=== PATIENT | male | born 1965 | race Two or more races ===

== ENCOUNTER 2020-12-14 16:34 | Emergency (ER) | payer BC, OTHER ==
[~2020-12-14] VITALS: Ht 190.5 cm; Wt 90.7 kg
[2020-12-14 17:15] VITALS: BP 143/74
[2020-12-14] MEDS ORDERED: ACETAMINOPHEN 500 MG TAB PO ONE (18:00)
== END 2020-12-14 18:16 | disposition home or self-care (01) ==
LOC: ER 16:34
DX: S01.81XA Laceration without foreign body of other part of head, initial encounter (principal); S50.311A Abrasion of right elbow, initial encounter; W26.8XXA Contact with other sharp object(s), not elsewhere classified, initial encounter; Y93.89 Activity, other specified; Y92.89 Other specified places as the place of occurrence of the external cause; Y99.8 Other external cause status
CPT/HCPCS: 12013; 70450; 73140